=== PATIENT | female | born 1995 | race Hispanic/Latino ===

== ENCOUNTER 2023-07-14 09:03 | Emergency (ER) | payer OTHER ==
[~2023-07-14] VITALS: Ht 149.9 cm; Wt 60.7 kg
[2023-07-14] MEDS ORDERED: KETOROLAC 30 MG/ML 1ML VIAL IV ONE (11:25)
[2023-07-14 11:32] LABS: URINE PREG TEST NEGATIVE (NEGATIVE)
[2023-07-14] MEDS ORDERED: ISOVUE-370 76% 100ML VIAL As Ordered ONE (12:01)
[2023-07-14 12:31] LABS: BILIRUBIN,DIRECT 0.4 MG/DL (<0.4); BILIRUBIN,TOTAL 1.8 MG/DL (0.3-1.2); TOTAL PROTEIN 7.6 G/DL (5.7-8.2)
[2023-07-14 12:32] LABS: BASO % 0.7 % (0.0-1.0); EOS # 0.1 10^3/uL (0.0-0.5); HEMOGLOBIN 12.5 g/dl (12.0-15.5); LYMPH # 2.4 10^3/uL (1.5-5.0); LYMPH % 39.7 % (24.0-44.0); MEAN CORPUSCULAR HEMOGLOBIN 29.3 pg (27.0-33.0); MEAN CORPUSCULAR HGB CONC 32.1 g/dl (32.0-36.5); MEAN CORPUSCULAR VOLUME 91.5 fl (80.0-96.0); MONO # 0.5 10^3/uL (0.0-0.8); MONO % 8.2 % (2.0-8.0); NEUTROPHILS % 50.4 % (36.0-66.0); PLATELET COUNT, AUTOMATED 266 10^3/uL (150-450); RED BLOOD COUNT 4.26 10^6/uL (4.00-5.40)
[2023-07-14] MEDS ORDERED: MACR100C43 PO (14:37)
[2023-07-14 14:56] VITALS: BP 117/69; TEMP 97.3; O2SAT 100
[2023-07-14 15:16] LABS: CHLAMYDIA DNA AMPLIFICATION NEGATIVE (NEGATIVE); GC DNA AMPLIFICATION NEGATIVE (NEGATIVE)
== END 2023-07-14 15:06 | disposition home or self-care (01) ==
LOC: M ED 09:03
DX: R30.0 Dysuria (principal); E80.6 Other disorders of bilirubin metabolism
CPT/HCPCS: 74177; 80047; 80076; 81001; 83690; 84703; 85025; 87086; 87661; 87810; 87850; 96374; 99284; J1885; Q9967